=== PATIENT | male | born 1980 | race Caucasian/White ===

== ENCOUNTER 2018-07-02 20:23 | Inpatient (IN) | payer OTHER ==
[~2018-07-02] VITALS: Ht 175.3 cm; Wt 72.6 kg
--- NOTE | 2018-07-02 21:08 | NUR ---
SE RECIBE PTE EN SILLON DE DIAMOND EN COMPANIA DEL RN DIAZ SE UBICA PTE EN LA UNIDAD DE CRITICO EN EN CUBICULO #3 EN CAMA CON BARRANDAS ELEVADA Y TIMBRE ACCESIBLE PTE ALERTA Y CONCIENTE POR 3 SE CONECTA A MONTIOR CARDIACO Y OXYMETRIA DE PULSO, SE ORIENTA PTE SOBRE EL LAS KRISTOPHER DE LA UNIDAD Y SOBRE EL TRATAMIENTO ORDNEADO POR EL DR CHAVEZ, SE RALIZAN MUESTRAS DE RON Y SE ADMINISTRA MEDICAMENTO BELLE ORDENADO Y SE REALIZA 2 EKG Y SE PRESENTA AL DR CHAVEZ [place] DE ADMINISTRAR MEDICAMENTO PTE SE MANTIENE EN OBSERVACION Y ABJO TRATAMIENTO AL MOMENTO NO PRESENTA DOLOR.
--- NOTE | 2018-07-02 21:08 | NUR ---
SE RECIBE PTE ALERTA Y ORIENTADO X3, EL CUAL REFIERE DOLOR DE PECHO Y SOB DESDE HOY EN LA TARDE. PTE REFIERE CORINNE ASPIRINA [facility]. SE LE REALIZA EKG A PTE AL MOMENTO DE LA LLEGADA EN EL CUAL SE OBSERVA SUKH SUPRAVENTRICULAR, DE INMEDIATO SE PRESENTA EKG A SHELDON EL CUAL ORDENA COLOCAR A PTE EN UNIDAD DE CRITICO. SE COLOCA A PTE EN CAMA #3 DE ICU#2. SE LE REALIZA LA JEANETTE DE S/V Y SE DOCUMENTA. PTE ES EVALUADO DE INMEDIATO POR EL SHELDON EN LA UNIDAD DE CRITICO, SE ROMELIA PTE A CARGO POR MISS ELIAS RN.
--- NOTE | 2018-07-02 23:00 | NUR ---
11:00PM SE RECIBE PACIENTE ALERTA Y ORIENTADO POR LYNDON ESFERAS EN LA UNIDAD DE CRITICO CONECTADO A MONITOR CARDIACO CON NORMAL SINUS RYTHM HR 96 LAT/MIN, OXIMETRIA DE PULSO CAPTURANDO AL MOMENTO 98% Y ASISTIDO RESPIRATORIAMENTE POR CANULA NASAL A 3LTS. SE OBSERVA H/L PATENTE NIESHA DE EDEMA Y ENROJECIMIENTO. PACIENTE NIESHA DE EDEMA Y ENROJECIMIENTO EN EXTREMIDADES. PACIENTE CON BUEN PATRON RESPIRATORIO Y PIEL TIBIA AL TACTO. PACIENTE NIEGA PRESENTA DOLOR. SE CONSULTA CON DR. CHVAEZ SOBRE IVF'S QUIEN ORDENA .45NSS @ 60ML/HR. PENDIENTE 2DA TROPONINAS 1:30AM. SE MANTIENE BAJO OBSERVACION POR CAMBIOS. 11:45PM SE ADMINISTRA MEDICAMENTO PARA LA FIEBRE.
--- NOTE | 2018-07-03 03:19 | NUR ---
SE OBSERVA PACIENTE EL CUAL PRESENTA BRADICARDIA Y SUDORACION. SE NOTIFICA A DRA. WORLEY. SE PRESENTA EKG Y V/S. SE ADMINISTRA MEDICAMENTOS BELLE ORDEN MEDICA.
--- NOTE | 2018-07-03 08:07 | NUR ---
SE RECIBE PTE ALERTA Y ORIENTADO X3 EN CAMA CON BARANDAS ELEVADAS. SE RECIBE PTE CONECTADO A AMONITOR CARDIACO Y OXIMETRIA. SE RECIBE PTE CANALIZADO AREA NIESHA DE EDEMA Y DE ENROJECIMIENTO. SE RECIBE PTE CON DRIP DE .45NSS BAJANDO A 60ML/HR. SE ELADIO MUESTRAS DE LAB. BELLE ORDEN MEDICA BAJO MEDIDAS ASEPTICAS A LAS 7:30AM. SE EDUCA A PTE SOBRE TRATAMIENTO MEDICO. PTE EN ESPERA DE CONSULTA CON .
[2018-07-05] MEDS ORDERED: OSEL75CA PO (18:12)
[2018-07-05] MEDS ORDERED: ASA-EC81 MG PO (18:13)
[2018-07-05] MEDS ORDERED: LIPITOR40 MG PO (18:13)
== END 2018-07-05 21:15 | disposition home or self-care (01) | DRG 281 ==
LOC: ER 20:23 → SEC-K 07-03 13:48 → MEDI 07-03 16:18 → SEC-K 07-03 16:24 → MEDJ 07-04 16:55
PROVIDERS: ADMIT Student in an Organized Health Care Education/Training Program
PROC: B246ZZZ Ultrasonography of Right and Left Heart (ICD-10-PCS; principal; 2018-07-03)
PROC: 8E0ZXY6 Isolation (ICD-10-PCS; 2018-07-03)
PROC: 4A12X4Z Monitoring of Cardiac Electrical Activity, External Approach (ICD-10-PCS; 2018-07-03)
PROC: C23GYZZ Positron Emission Tomographic (PET) Imaging of Myocardium using Other Radionuclide (ICD-10-PCS; 2018-07-04)
DX: I47.1 Supraventricular tachycardia (principal); I21.4 Non-ST elevation (NSTEMI) myocardial infarction; I24.9 Acute ischemic heart disease, unspecified; J11.1 Influenza due to unidentified influenza virus with other respiratory manifestations